=== PATIENT | male | born 1990 | race Caucasian/White ===

== ENCOUNTER 2018-07-14 21:11 | Emergency (ER) | payer MEDICAID, OTHER ==
[2018-07-14 21:12] VITALS: BMI 24.1
[2018-07-14 21:24] VITALS: BP 129/79; PULSE 60; RESP 14; TEMP 98.5; O2SAT 98
--- NOTE | 2018-07-14 21:56 | C.PDOC ---
History Of Present Illness 27 y/o male comes in for evaluation of itchy rash to right hand, developing since yesterday after exposure to poison lin. 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 Otherwise he denies any fever, throat swelling/tightness, drooling, cough, chest pain, wheezing, or recent illness. Time Seen by Provider: 07/14/18 21:32 Chief Complaint (Nursing): Abnormal Skin Integrity History Per: Patient History/Exam Limitations: no limitations Onset/Duration Of Symptoms: Days (x2) Current Symptoms Are (Timing): Still Present Location Of Injury: Right: Hand Quality Of Symptoms: Itching Past Medical History Reviewed: Historical Data, Nursing Documentation, Vital Signs Vital Signs: Last Vital Signs Temp 98.5 F 07/14/18 21:20 Pulse 60 07/14/18 21:20 Resp 14 07/14/18 21:20 BP 129/79 07/14/18 21:20 Pulse Ox 98 07/14/18 21:20 - Medical History PMH: No Chronic Diseases Surgical History: No Surg Hx Family History: States: Unknown Family Hx - Social History Hx Tobacco Use: No Hx Alcohol Use: Yes (social) Hx Substance Use: No - Immunization History Hx Tetanus Toxoid Vaccination: Yes Hx Influenza Vaccination: No Hx Pneumococcal Vaccination: No Review Of Systems Except As Marked, All Systems Reviewed And Found Negative. Constitutional: Negative for: Fever, Chills ENT: Negative for: Throat Pain, Throat Swelling, Other (difficulty swallowing, drooling) Cardiovascular: Negative for: Chest Pain Respiratory: Negative for: Cough, Shortness of Breath, Wheezing Musculoskeletal: Positive for: Hand Pain Skin: Positive for: Rash (to right hand) Neurological: Negative for: Weakness, Numbness, Incoordination Physical Exam - Physical Exam Appears: Well, Non-toxic, No Acute Distress Skin: Normal Color, Warm, Dry, Rash (scattered erythematous vesicular rash in line over dorsal aspect Right wrist and Right hand. No cellulitis, no discharge. ) Eye(s): bilateral: PERRL Nose: No Flaring Oral Mucosa: Moist Tongue: No Swelling Lips: No Swelling Throat: No Drooling, Other (uvula midline, no edema.) Neck: Supple Cardiovascular: Rhythm Regular Respiratory: No Decreased Breath Sounds, No Accessory Muscle Use, No Stridor, No Wheezing Extremity: Normal ROM (Right hand and wrist, no neurovascular deficits.), Capillary Refill (less than 2sec to Right hand), No Deformity, No Swelling Neurological/Psych: Oriented x3, Normal Speech, Normal Motor, Normal Sensation, Normal Reflexes ED Course And Treatment O2 Sat by Pulse Oximetry: 98 (RA) Pulse Ox Interpretation: Normal Progress Note: On re-eval, pt is afebrile, hemodynamicaly stable. Non-toxic. Tolerate Po wlel in Ed. PulsEOx 98% RA. EENT: no acute finidngs, uvual midline, no edema. neck: Supple, (-) meningeal sign. Lungs: CTA B/L, BS equal B/L. SKin: vesicular erythematous rash in line over dorsal aspect Right wrist and hand. NO superimposed infection, no edema, no cellulitis. FAROM of Right hand. Neurologicaly intact. Pt advised. Ref. to f/u with PMD, environmental technical officer in 2-3 days for re-eavl. return to ED if any worsening or new changes. Disposition Counseled Patient/Family Regarding: Diagnosis, Need For Followup, Rx Given - Disposition Referrals: [facility] [Outside] Disposition: HOME/ ROUTINE Disposition Time: 21:50 Condition: STABLE Additional Instructions: Take medication as prescribed Follow up with PMD in 2-3 days for re-evaluation. return to ED if any worsening or new changes. Prescriptions: DiphenhydrAMINE [Benadryl] 25 mg PO BID #10 cap Famotidine [Pepcid] 20 mg PO BID #10 tab Prednisone [Deltasone] 40 mg PO DAILY #9 tablet Instructions: Poison Lin Forms: vLine (Sinhala) - Clinical Impression Clinical Impression: Contact dermatitis due to poison lin - PA / CHANGE BOOTH ATTENDANT / Resident Statement MD/DO has reviewed & agrees with the documentation as recorded. - Scribe Statement The provider has reviewed the documentation as recorded by the Scribe (Thalia Davila) All medical record entries made by the Scribe were at my direction and personally dictated by me. I have reviewed the chart and agree that the record accurately reflects my personal performance of the history, physical exam, medical decision making, and the department course for this patient. I have also personally directed, reviewed, and agree with the discharge instructions and disposition.
== END 2018-07-14 22:15 | disposition home or self-care (01) ==
LOC: C.ER 21:11
DX: L25.5 Unspecified contact dermatitis due to plants, except food (principal)